=== PATIENT | female | born 1980 | race Caucasian/White ===

== ENCOUNTER 2017-05-20 06:13 | Emergency (ER) | payer OTHER ==
[~2017-05-20] VITALS: Ht 167.6 cm; Wt 80.5 kg
[2017-05-20] MEDS ORDERED: CLEOCIN HCL300 MG PO (06:21)
[2017-05-20] MEDS ORDERED: PREDNISONE10 MG PO (06:21)
[2017-05-20] MEDS ORDERED: CYMBALTA 60MG60 MG PO (06:21)
[2017-05-20] MEDS ORDERED: APRI 0.15 MG-0.1 TAB PO (06:23)
[2017-05-20 07:08] LABS: BASO % 0.2 % (0.0-2.0); GRAN # 7.6 (1.4-6.5); GRAN % 82.2 % (42.2-75.2); HEMATOCRIT 41.4 % (37.0-47.0); LYMPH # 1.3 (1.2-3.4); LYMPH % 13.5 % (20.0-51.0); MEAN CELL VOLUME 91 fl (80.0-100.0); MEAN CORPUSCULAR HEMOGLOBIN 31 pg (27.0-31.0); MEAN CORPUSCULAR HGB CONC 34 g/dl (33.0-37.0); MEAN PLATELET VOLUME 9.8 fl (7.4-10.4); MONO # 0.3 (0.1-0.6); MONO % 3.7 % (1.7-9.3); PLATELET COUNT 359 K/mm3 (130-400); RED BLOOD COUNT 4.53 M/mm3 (4.10-5.30); REDCELL DISTRIBUTION WIDTH-CV 12.7 % (11.5-14.5); WHITE BLOOD COUNT 9.3 K/mm3 (4.8-10.8)
[2017-05-20 07:25] LABS: PH 5 (5-8); URINE APPEARANCE Cloudy; URINE BACTERIA Occasional /hpf; URINE BILIRUBIN Negative (NEGATIVE); URINE BLOOD 3+ (NEGATIVE); URINE COLOR Yellow; URINE GLUCOSE Negative (NEGATIVE); URINE KETONE Negative (NEGATIVE); URINE UROBILINOGEN Negative (NEGATIVE)
[2017-05-20 07:26] LABS: ADJUSTED CALCIUM 9.1 mg/dL (8.4-10.2); ALBUMIN 4.6 gm/dL (3.5-5.0); BILIRUBIN,TOTAL 0.6 mg/dL (0.0-1.0); CALCIUM 9.6 mg/dL (8.4-10.2); CREATININE, serum 0.81 mg/dL (0.52-1.25); POTASSIUM 4.2 mmol/L (3.4-5.0); TOTAL PROTEIN 8.5 gm/dL (6.4-8.2)
[2017-05-20] MEDS ORDERED: VOLTAREN 75 DR75 MG PO (09:08)
[2017-05-20] MEDS ORDERED: ZOFRAN ODT4 MG SL (09:08)
[2017-05-20] MEDS ORDERED: NORCO 325 MG-51 TAB PO (09:08)
[2017-05-20 09:33] VITALS: BP 142/98; PULSE 74; TEMP 97.9
== END 2017-05-20 09:33 | disposition home or self-care (01) ==
LOC: COL.ER 06:13
PROVIDERS: Emergency Medicine
DX: N20.2 Calculus of kidney with calculus of ureter (principal); Z98.51 Tubal ligation status; Z98.890 Other specified postprocedural states
CPT/HCPCS: J0696; J1170; J1885; J2405; J7030

== ENCOUNTER → 2018-06-14 | Outpatient (CLI) | payer OTHER ==
[2004-11-27 12:57] VITALS: PULSE 101
[~2018-06-14] MED LIST: APRI 0.15 MG-0.1 TAB PO; CLEOCIN HCL300 MG PO; CYMBALTA 60MG60 MG PO; NORCO 325 MG-51 TAB PO; PREDNISONE10 MG PO; VOLTAREN 75 DR75 MG PO; ZOFRAN ODT4 MG SL
== END ==
LOC: MC.RAD 10:56
DX: Z12.31 Encounter for screening mammogram for malignant neoplasm of breast (principal); Z80.3 Family history of malignant neoplasm of breast

== ENCOUNTER → 2019-11-02 | Outpatient (CLI) | payer OTHER ==
[2004-11-27 12:57] VITALS: PULSE 101
== END ==
LOC: MC.RAD 13:45
DX: Z12.31 Encounter for screening mammogram for malignant neoplasm of breast (principal)

== ENCOUNTER → 2023-12-11 | Outpatient (CLI) | payer BC ==
[2004-11-27 12:57] VITALS: PULSE 101
== END ==
LOC: MC.RAD 09:39
DX: N63.20 Unspecified lump in the left breast, unspecified quadrant (principal)